=== PATIENT | male | born 1960 | race Caucasian/White ===

== ENCOUNTER 2019-10-13 08:25 | Inpatient (IN) | payer MEDICAID, OTHER ==
[~2019-10-13] VITALS: Ht 182.9 cm; Wt 106.6 kg
[2019-10-13] MEDS ORDERED: SODIUM CHLORIDE 0.9% 1,000 ML IV ONE (08:37)
[2019-10-13] MEDS ORDERED: SODIUM CHLORIDE 0.9% 1,000 ML IVB ONE (08:37)
[2019-10-13 09:23] LABS: Hematocrit 44.1 % (41.0-53.0); Hemoglobin 14.9 g/dL (13.5-17.5); Mean Corpuscular Hemoglobin 30.3 pg (28.0-32.0); Mean Corpuscular Hgb Conc. 33.7 g/dL (32.0-36.0); Mean Corpuscular Volume 89.9 fL (80.0-100.0); Platelet Count (auto) 308 10^3/uL (140-450); Red Cell Distribution Width 13.4 % (11.8-14.3); White Blood Cell 27.4 10^3/uL (4.4-10.8)
[2019-10-13 09:32] LABS: Basophils % (manual) 0 (0.0-2.0); Blast Cells 0; Eosinophils % (manual) 0 (0-7); Metamyelocytes % 0; Myelocytes % 0; Promyelocytes % 0; Reactive Lymphocytes 0
[2019-10-13 09:42] LABS: Anion Gap 14 (5-15); Blood Urea Nitrogen 65 mg/dL (7-18); Calcium 8.8 mg/dL (8.5-10.1); Carbon Dioxide 17 mmol/L (21-32); Chloride 95 mmol/L (98-107); Potassium 5.1 mmol/L (3.5-5.1); Sodium 126 mmol/L (136-145)
[2019-10-13 09:51] LABS: Alanine Aminotransferase 30 U/L (16-61); Alkaline Phosphatase 222 U/L (45-117); Aspartate Aminotransferase 36 U/L (15-37); BUN/Creatinine Ratio 33.2; Bilirubin, Total 1.3 mg/dL (0.2-1.0); Blood Alcohol < 3.0 mg/dL (0-5); GFR African American 45 mL/min; GFR Non-African American 37 mL/min; Total Protein 8.3 g/dL (6.4-8.2)
[2019-10-13 10:03] LABS: Albumin 1.8 g/dL (3.4-5.0)
[2019-10-13 10:04] LABS: Glucose 566 mg/dL (74-106)
[2019-10-13] MEDS ORDERED: SODIUM CHLORIDE 0.9% 1,000 ML IV SCH ×4 (10:10→16:21)
[2019-10-13] MEDS ORDERED: InsuLIN R (HUMAN) 100 UNITS in SODIUM CHL 0.9% 99 ML IV SCH ×2 (10:10→12:21)
[2019-10-13] MEDS ORDERED: PIPERACILLIN-TAZOB 3.375GM 100 ML IV ONE (10:15)
[2019-10-13] MEDS ORDERED: DEXTROSE (50%) 50ML SYRG IV PRN ×2 (10:15→12:30)
[2019-10-13] MEDS ORDERED: LORazepam 2MG/ML-1ML VIAL IV ONE (10:15)
[2019-10-13 10:30] LABS: Band Neutrophils % (manual) 13; Lymphocytes % (manual) 5 (10.0-50.0); Monocytes % (manual) 2 (0-12)
[2019-10-13] MEDS ORDERED: ACCU-CHEK COMFORT CURVE STRIP VI SCH (10:30)
[2019-10-13 10:55] LABS: Magnesium 2.1 mg/dL (1.6-2.6)
[2019-10-13] MEDS ORDERED: LORazepam 2MG/ML-1ML VIAL IM ONE (11:30)
[2019-10-13] MEDS ORDERED: ACETAMINOPHEN 650 MG RECT SUPP PR ONE (11:45)
[2019-10-13 11:58] LABS: Amylase 12 U/L (25-115); Lipase 60 U/L (73-393)
[2019-10-13 12:04] LABS: Urine WBC None Seen /hpf (0 - 3)
[2019-10-13 12:20] LABS: Phosphorus 0.7 mg/dL (2.5-4.90)
[2019-10-13 12:26] LABS: Urine Bacteria FEW /hpf (None Seen); Urine Blood 3+ /uL (Negative); Urine Specific Gravity 1.021 (1.001-1.035)
[2019-10-13] MEDS ORDERED: PROMETHAZINE HCL 25 MG/ML 1ML IV PRN (12:30)
[2019-10-13] MEDS ORDERED: cefTRIAXone 1GM/50ML D5W 50 ML IV ONE (12:30)
[2019-10-13] MEDS ORDERED: NITROGLYCERIN 0.4 MG SL TAB SL PRN (12:30)
[2019-10-13] MEDS ORDERED: INSULIN LANTUS (GLARGINE) 1 /0.01ml (100units/ml) SC ONE (12:30)
[2019-10-13] MEDS ORDERED: MORPHINE SULF INJ 2 MG/ML SYRINGE 1ML IV PRN (12:30)
[2019-10-13] MEDS ORDERED: traMADol HCL 50 MG TAB PO PRN (12:30)
[2019-10-13 12:32] LABS: Alcohol, Urine < 3.0 mg/dL (0-10); Amphetamine Screen, Urine POSITIVE (NEGATIVE); Barbiturate Scree,Urine NEGATIVE (NEGATIVE); Benzodiazephine Screen, Urine NEGATIVE (NEGATIVE); Cannabinoid Screen, Urine NEGATIVE (NEGATIVE); Cocaine Screen, Urine NEGATIVE (NEGATIVE); Opiate Scree,Urine NEGATIVE (NEGATIVE); Phencyclidine Screen, Urine NEGATIVE (NEGATIVE)
[2019-10-13 14:00] LABS: Anion Gap 17 (5-15); Carbon Dioxide 13 mmol/L (21-32); Chloride 98 mmol/L (98-107); Sodium 128 mmol/L (136-145)
[2019-10-13 14:01] LABS: BUN/Creatinine Ratio 32.5; Blood Urea Nitrogen 67 mg/dL (7-18); CRP High Sensitivity > 0.95 mg/dL (< 0.3); GFR African American 42 mL/min; GFR Non-African American 35 mL/min
[2019-10-13 14:04] LABS: Glucose 563 mg/dL (74-106); Potassium 5.9 mmol/L (3.5-5.1)
[2019-10-13] MEDS: ACCU-CHEK COMFORT CURVE STRIP VI SCH ×7 (14:10→22:46)
[2019-10-13] MEDS: SODIUM CHLORIDE 0.9% 1,000 ML IV SCH ×3 (14:17→20:56)
[2019-10-13] MEDS: metroNIDAZOLE 500MG/100ML 100 ML IV SCH ×2 (15:02→22:28)
[2019-10-13] MEDS ORDERED: CLINDAMYCIN 900MG IV 50 ML IV ONE (16:00)
[2019-10-13] MEDS: FAMOTIDINE (10MG/ML) 2ML VL IV SCH (17:36)
[2019-10-13 18:53] LABS: BUN/Creatinine Ratio 38.2; Calcium 7.9 mg/dL (8.5-10.1); Potassium 4.3 mmol/L (3.5-5.1)
[2019-10-13] MEDS: ACETAMINOPHEN 650 MG RECT SUPP PR PRN (19:18)
[2019-10-13] MEDS: CLINDAMYCIN 600MG IV 50 ML IV SCH (21:31)
[2019-10-13] MEDS: ATORVASTATIN 20 MG TAB PO SCH (22:00)
[2019-10-14] VITALS (39 sets, daily range): BP systolic 90–138; BP diastolic 62–93
[2019-10-14] MEDS: ACCU-CHEK COMFORT CURVE STRIP VI SCH ×10 (00:30→20:12)
[2019-10-14] MEDS: SODIUM CHLORIDE 0.9% 1,000 ML IV SCH ×5 (01:03→21:15)
[2019-10-14 01:30] LABS: Chloride 112 mmol/L (98-107); Potassium 4.4 mmol/L (3.5-5.1); Sodium 138 mmol/L (136-145)
[2019-10-14 01:36] LABS: Alanine Aminotransferase 25 U/L (16-61); Albumin 1.3 g/dL (3.4-5.0); Anion Gap 9 (5-15); Aspartate Aminotransferase 49 U/L (15-37); BUN/Creatinine Ratio 41.3; Blood Urea Nitrogen 59 mg/dL (7-18); Calcium 7.9 mg/dL (8.5-10.1); Carbon Dioxide 17 mmol/L (21-32); GFR African American 65 mL/min; GFR Non-African American 53 mL/min; Glucose 204 mg/dL (74-106)
[2019-10-14 01:38] LABS: Alkaline Phosphatase 152 U/L (45-117); Bilirubin, Total 0.9 mg/dL (0.2-1.0); Total Protein 6.8 g/dL (6.4-8.2)
[2019-10-14] MEDS ORDERED: ACETAMINOPHEN 650 MG RECT SUPP PR ONE ×3 (04:17→07:53)
[2019-10-14] MEDS ORDERED: metroNIDAZOLE 500MG/100ML 100 ML IV ONE (05:35)
[2019-10-14] MEDS ORDERED: CLINDAMYCIN 600MG IV 50 ML IV ONE (05:36)
[2019-10-14] MEDS: metroNIDAZOLE 500MG/100ML 100 ML IV SCH ×2 (06:00→14:28)
[2019-10-14 06:50] LABS: Basophils # (auto) 0 10 ^3/uL (0-0.2); Basophils % (auto) 0.1 % (0.0-2.0); Eosinophils # (auto) 0 10 ^3/uL (0-0.8); Hemoglobin 12.8 g/dL (13.5-17.5); Lymphocytes # (auto) 0.6 10 ^3/uL (0.4-5.4); Lymphocytes % (auto) 3.5 % (10.0-50.0); Mean Corpuscular Hemoglobin 29.9 pg (28.0-32.0); Mean Corpuscular Hgb Conc. 33.6 g/dL (32.0-36.0); Mean Corpuscular Volume 88.8 fL (80.0-100.0); Monocytes # (auto) 0.9 10 ^3/uL (0-1.3); Monocytes % (auto) 5.3 % (0.0-12.0); Neutrophils # (auto) 15.6 10 ^3/uL (1.6-8.6); Neutrophils % (auto) 91.1 % (37.0-80.0); Platelet Count (auto) 208 10^3/uL (140-450); Red Blood Cells 4.28 10^6/uL (4.5-5.90); Red Cell Distribution Width 13.7 % (11.8-14.3); White Blood Cell 17.1 10^3/uL (4.4-10.8)
[2019-10-14 07:06] LABS: INR 1.17 (0.9-1.15)
[2019-10-14 07:07] LABS: Calcium 7.9 mg/dL (8.5-10.1); Potassium 4.1 mmol/L (3.5-5.1)
[2019-10-14 07:15] LABS: Albumin 1.3 g/dL (3.4-5.0); BUN/Creatinine Ratio 45.2; Bilirubin, Total 0.9 mg/dL (0.2-1.0); Total Protein 6.6 g/dL (6.4-8.2)
[2019-10-14] MEDS: CLINDAMYCIN 600MG IV 50 ML IV SCH (07:25)
[2019-10-14] MEDS ORDERED: hydrALAZINE HCL 20 MG/ML VL IV PRN (08:00)
[2019-10-14 08:15] LABS: Cholesterol 82 mg/dL (< 200); Triglycerides 105 mg/dL (< 150)
[2019-10-14 08:18] LABS: HDL Cholesterol 7 mg/dL (40-59); LDL Cholesterol 33 mg/dL (< 100)
[2019-10-14] MEDS: ACETAMINOPHEN 650 MG RECT SUPP PR PRN (08:40)
[2019-10-14] MEDS ORDERED: cefTRIAXone 1GM/50ML D5W 50 ML IV SCH (09:00)
[2019-10-14] MEDS ORDERED: SULF400T11 PO (09:32)
[2019-10-14] MEDS ORDERED: ASPI-498 PO (09:32)
[2019-10-14] MEDS ORDERED: LISI10TA6 PO (09:32)
[2019-10-14] MEDS ORDERED: ALLO300T2 PO (09:32)
[2019-10-14] MEDS ORDERED: LISI-711 PO (09:32)
[2019-10-14] MEDS ORDERED: HYDR-4798 PO (09:36)
[2019-10-14] MEDS ORDERED: GABA800T97 PO (09:36)
[2019-10-14] MEDS ORDERED: INSLISPI SC (09:36)
[2019-10-14] MEDS ORDERED: INSU1INJ19 SC (09:36)
[2019-10-14] MEDS ORDERED: FAMOTIDINE (10MG/ML) 2ML VL IV ONE (09:51)
[2019-10-14] MEDS ORDERED: INSULIN LANTUS (GLARGINE) 1 /0.01ml (100units/ml) SC ONE (09:51)
[2019-10-14] MEDS ORDERED: cefTRIAXone 1GM/50ML D5W 50 ML IV ONE (09:51)
[2019-10-14] MEDS: INSULIN LANTUS (GLARGINE) 1 /0.01ml (100units/ml) SC SCH (10:00)
[2019-10-14] MEDS ORDERED: ASPirin 81 mg TAB PO SCH (10:00)
[2019-10-14] MEDS ORDERED: DEXTROSE (50%) 50ML SYRG IV PRN (10:00)
[2019-10-14] MEDS ORDERED: LISINOPRIL 10 MG TAB PO SCH (10:00)
[2019-10-14] MEDS: FAMOTIDINE (10MG/ML) 2ML VL IV SCH (10:08)
[2019-10-14] MEDS: METOPROLOL TARTRATE 25 MG TAB PO SCH ×2 (10:19→22:20)
[2019-10-14] MEDS: ASPirin 81 mg TAB PO SCH (10:19)
[2019-10-14] MEDS: LINEZOLID 600MG/300ML 300 ML IV SCH ×2 (10:43→22:13)
[2019-10-14] MEDS: InsuLIN REG 1unit/0.01ml Soln (100units/ml) SC SCH ×3 (11:49→20:14)
[2019-10-14] MEDS ORDERED: CLINDAMYCIN 600MG IV 50 ML IV SCH (16:00)
[2019-10-14 16:25] LABS: BUN/Creatinine Ratio 47.8; Calcium 7.7 mg/dL (8.5-10.1)
[2019-10-14] MEDS: ACETAMINOPHEN 500 MG TAB PO PRN (18:13)
[2019-10-14] MEDS ORDERED: ACETAMINOPHEN 650 MG RECT SUPP PR PRN (21:30)
[2019-10-14] MEDS: PIPERACILLIN-TAZOB 3.375GM 100 ML IV SCH (22:12)
[2019-10-14] MEDS: MUPIROCIN 2% OINT 15gm or 22gm EACHNOSTRI SCH (22:15)
[2019-10-14] MEDS: ATORVASTATIN 20 MG TAB PO SCH (22:16)
[2019-10-15] VITALS (46 sets, daily range): BP systolic 96–144; BP diastolic 61–87
[2019-10-15] MEDS: ACCU-CHEK COMFORT CURVE STRIP VI SCH ×6 (00:12→20:20)
[2019-10-15] MEDS: InsuLIN REG 1unit/0.01ml Soln (100units/ml) SC SCH ×6 (00:15→20:17)
[2019-10-15] MEDS: PIPERACILLIN-TAZOB 3.375GM 100 ML IV SCH (05:41)
[2019-10-15 05:43] LABS: Basophils # (auto) 0 10 ^3/uL (0-0.2); Basophils % (auto) 0.2 % (0.0-2.0); Eosinophils # (auto) 0 10 ^3/uL (0-0.8); Eosinophils % (auto) 0.2 % (0.0-7.0); Hematocrit 37.5 % (41.0-53.0); Hemoglobin 12.6 g/dL (13.5-17.5); Lymphocytes # (auto) 0.7 10 ^3/uL (0.4-5.4); Lymphocytes % (auto) 4.7 % (10.0-50.0); Mean Corpuscular Hemoglobin 30.2 pg (28.0-32.0); Mean Corpuscular Hgb Conc. 33.6 g/dL (32.0-36.0); Monocytes # (auto) 0.7 10 ^3/uL (0-1.3); Monocytes % (auto) 4.6 % (0.0-12.0); Neutrophils % (auto) 90.3 % (37.0-80.0); Platelet Count (auto) 190 10^3/uL (140-450); Red Blood Cells 4.17 10^6/uL (4.5-5.90); Red Cell Distribution Width 14.1 % (11.8-14.3); White Blood Cell 15.5 10^3/uL (4.4-10.8)
[2019-10-15 05:57] LABS: Albumin 1.2 g/dL (3.4-5.0); Calcium 7.6 mg/dL (8.5-10.1); Potassium 3.7 mmol/L (3.5-5.1)
[2019-10-15 06:02] LABS: BUN/Creatinine Ratio 45.2; Bilirubin, Total 0.4 mg/dL (0.2-1.0); Total Protein 6.3 g/dL (6.4-8.2)
[2019-10-15] MEDS: FAMOTIDINE (10MG/ML) 2ML VL IV SCH (09:24)
[2019-10-15] MEDS: ASPirin 81 mg TAB PO SCH (09:24)
[2019-10-15] MEDS: LINEZOLID 600MG/300ML 300 ML IV SCH (09:24)
[2019-10-15] MEDS: MUPIROCIN 2% OINT 15gm or 22gm EACHNOSTRI SCH ×2 (09:24→21:49)
[2019-10-15] MEDS: METOPROLOL TARTRATE 25 MG TAB PO SCH ×2 (09:25→21:50)
[2019-10-15] MEDS: ENOXAPARIN SOD 40 MG/0.4 ML SYRINGE SC SCH (09:25)
[2019-10-15] MEDS: SODIUM CHLORIDE 0.9% 1,000 ML IV SCH (10:35)
[2019-10-15] MEDS ORDERED: VANCOMYCIN PER PHARMACY 0 MG IV SCH (11:15)
[2019-10-15] MEDS ORDERED: VANCOMYCIN 1GM/250ML 250 ML IV ONE (11:30)
[2019-10-15] MEDS: INSULIN LANTUS (GLARGINE) 1 /0.01ml (100units/ml) SC SCH (12:25)
[2019-10-15] MEDS: levoFLOXacin 500MG 100 ML IV SCH (13:55)
[2019-10-15] MEDS: metroNIDAZOLE 500MG/100ML 100 ML IV SCH ×2 (15:30→21:49)
[2019-10-15] MEDS ORDERED: LIDOCAINE 1% (LOCAL ANESTH.) PF 5ml SDV ID ONE (18:00)
[2019-10-15] MEDS: ATORVASTATIN 20 MG TAB PO SCH (21:50)
[2019-10-15] MEDS: ACETAMINOPHEN 500 MG TAB PO PRN (21:50)
[2019-10-15] MEDS: SODIUM CHLOR 0.9% PF (SALINE LOCK) 10ML VIAL/SYR IV SCH (21:56)
[2019-10-15 22:49] LABS: Protein, Urine 68.1 mg/dL (0.0-11.9)
[2019-10-16] VITALS (35 sets, daily range): BP systolic 103–137; BP diastolic 62–98
[2019-10-16] MEDS: InsuLIN REG 1unit/0.01ml Soln (100units/ml) SC SCH ×6 (00:15→20:02)
[2019-10-16] MEDS: ACCU-CHEK COMFORT CURVE STRIP VI SCH ×6 (00:17→20:08)
[2019-10-16] MEDS: VANCOMYCIN 1GM/250ML 250 ML IV SCH ×2 (01:09→13:15)
[2019-10-16 04:32] LABS: Basophils # (auto) 0.1 10 ^3/uL (0-0.2); Basophils % (auto) 0.4 % (0.0-2.0); Eosinophils # (auto) 0.1 10 ^3/uL (0-0.8); Eosinophils % (auto) 0.4 % (0.0-7.0); Hemoglobin 11.6 g/dL (13.5-17.5); Lymphocytes % (auto) 6.6 % (10.0-50.0); Mean Corpuscular Hemoglobin 30.2 pg (28.0-32.0); Mean Corpuscular Hgb Conc. 34.2 g/dL (32.0-36.0); Mean Corpuscular Volume 88.5 fL (80.0-100.0); Monocytes # (auto) 0.4 10 ^3/uL (0-1.3); Monocytes % (auto) 2.8 % (0.0-12.0); Neutrophils # (auto) 13.6 10 ^3/uL (1.6-8.6); Neutrophils % (auto) 89.8 % (37.0-80.0); Platelet Count (auto) 144 10^3/uL (140-450); Red Blood Cells 3.84 10^6/uL (4.5-5.90); Red Cell Distribution Width 13.7 % (11.8-14.3); White Blood Cell 15.2 10^3/uL (4.4-10.8)
[2019-10-16 04:43] LABS: Potassium 3.6 mmol/L (3.5-5.1)
[2019-10-16 04:49] LABS: Albumin 1.1 g/dL (3.4-5.0); Bilirubin, Total 0.4 mg/dL (0.2-1.0); Calcium 6.8 mg/dL (8.5-10.1); Phosphorus 2.4 mg/dL (2.5-4.90); Total Protein 5.8 g/dL (6.4-8.2); Uric Acid 7.7 mg/dL (3.5-7.2)
[2019-10-16] MEDS: metroNIDAZOLE 500MG/100ML 100 ML IV SCH ×3 (06:23→21:34)
[2019-10-16] MEDS: levoFLOXacin 500MG 100 ML IV SCH (10:21)
[2019-10-16] MEDS: FAMOTIDINE (10MG/ML) 2ML VL IV SCH (10:21)
[2019-10-16] MEDS: SODIUM CHLOR 0.9% PF (SALINE LOCK) 10ML VIAL/SYR IV SCH ×2 (10:21→21:34)
[2019-10-16] MEDS: INSULIN LANTUS (GLARGINE) 1 /0.01ml (100units/ml) SC SCH (10:33)
[2019-10-16] MEDS: ENOXAPARIN SOD 40 MG/0.4 ML SYRINGE SC SCH (10:39)
[2019-10-16] MEDS: ASPirin 81 mg TAB PO SCH (10:39)
[2019-10-16] MEDS: METOPROLOL TARTRATE 25 MG TAB PO SCH ×2 (10:39→21:34)
[2019-10-16] MEDS: MUPIROCIN 2% OINT 15gm or 22gm EACHNOSTRI SCH ×2 (10:39→21:33)
[2019-10-16] MEDS ORDERED: POTASSIUM CHL 20 Meq TABLET PO ONE (11:30)
[2019-10-16] MEDS ORDERED: POTASSIUM CHLORIDE 20 MEQ in SODIUM CHLORIDE 0.9% 1,000 ML IV SCH (11:30)
[2019-10-16] MEDS ORDERED: SOD CHL 0.9%/ KCL 20MEQ 1,000 ML IV ONE (13:11)
[2019-10-16] MEDS: SOD CHL 0.9%/ KCL 20MEQ 1,000 ML IV SCH (13:26)
[2019-10-16] MEDS: ACETAMINOPHEN 500 MG TAB PO PRN (18:13)
[2019-10-16] MEDS ORDERED: HYDROcodone-ACET 5/325MG TAB PO PRN (20:15)
[2019-10-16] MEDS: ATORVASTATIN 20 MG TAB PO SCH (21:35)
[2019-10-17] MEDS: InsuLIN REG 1unit/0.01ml Soln (100units/ml) SC SCH ×7 (00:24→23:52)
[2019-10-17] MEDS: ACCU-CHEK COMFORT CURVE STRIP VI SCH ×7 (00:26→23:50)
[2019-10-17] MEDS: VANCOMYCIN 1GM/250ML 250 ML IV SCH ×2 (00:27→14:51)
[2019-10-17] MEDS: SOD CHL 0.9%/ KCL 20MEQ 1,000 ML IV SCH ×2 (03:44→18:05)
[2019-10-17 05:00] VITALS: BP 157/93
[2019-10-17] MEDS: metroNIDAZOLE 500MG/100ML 100 ML IV SCH ×3 (05:40→22:00)
[2019-10-17] MEDS: ACETAMINOPHEN 500 MG TAB PO PRN (06:16)
[2019-10-17 06:29] LABS: Basophils # (auto) 0 10 ^3/uL (0-0.2); Basophils % (auto) 0.1 % (0.0-2.0); Eosinophils # (auto) 0 10 ^3/uL (0-0.8); Hematocrit 38.9 % (41.0-53.0); Lymphocytes # (auto) 0.5 10 ^3/uL (0.4-5.4); Lymphocytes % (auto) 3.2 % (10.0-50.0); Mean Corpuscular Hgb Conc. 33.3 g/dL (32.0-36.0); Monocytes # (auto) 0.3 10 ^3/uL (0-1.3); Monocytes % (auto) 1.8 % (0.0-12.0); Neutrophils # (auto) 15.1 10 ^3/uL (1.6-8.6); Neutrophils % (auto) 94.9 % (37.0-80.0); Platelet Count (auto) 184 10^3/uL (140-450); Red Blood Cells 4.32 10^6/uL (4.5-5.90); Red Cell Distribution Width 13.9 % (11.8-14.3); White Blood Cell 15.9 10^3/uL (4.4-10.8)
[2019-10-17 06:32] LABS: Potassium 4.3 mmol/L (3.5-5.1)
[2019-10-17 06:42] LABS: BUN/Creatinine Ratio 42.4; Calcium 7.4 mg/dL (8.5-10.1)
[2019-10-17 09:00] VITALS: BP 115/66
[2019-10-17] MEDS: INSULIN LANTUS (GLARGINE) 1 /0.01ml (100units/ml) SC SCH (10:00)
[2019-10-17] MEDS: ASPirin 81 mg TAB PO SCH (11:29)
[2019-10-17] MEDS: METOPROLOL TARTRATE 25 MG TAB PO SCH ×2 (11:32→22:16)
[2019-10-17] MEDS: levoFLOXacin 500MG 100 ML IV SCH (11:34)
[2019-10-17] MEDS: SODIUM CHLOR 0.9% PF (SALINE LOCK) 10ML VIAL/SYR IV SCH ×2 (11:47→22:00)
[2019-10-17] MEDS: MUPIROCIN 2% OINT 15gm or 22gm EACHNOSTRI SCH ×2 (12:11→22:00)
[2019-10-17] MEDS: FAMOTIDINE (10MG/ML) 2ML VL IV SCH (12:12)
[2019-10-17] MEDS: SODIUM BICARBONATE 650 MG TAB PO SCH ×2 (12:12→22:15)
[2019-10-17] MEDS: ENOXAPARIN SOD 40 MG/0.4 ML SYRINGE SC SCH (12:32)
[2019-10-17 13:00] VITALS: BP 110/63
[2019-10-17 17:00] VITALS: BP 124/72
[2019-10-17 22:00] VITALS: BP 170/82
[2019-10-17] MEDS: ATORVASTATIN 20 MG TAB PO SCH (22:15)
[2019-10-18] MEDS: VANCOMYCIN 1GM/250ML 250 ML IV SCH ×2 (01:28→14:00)
[2019-10-18] MEDS: ACCU-CHEK COMFORT CURVE STRIP VI SCH ×3 (04:12→13:59)
[2019-10-18] MEDS: InsuLIN REG 1unit/0.01ml Soln (100units/ml) SC SCH ×3 (04:17→13:59)
[2019-10-18 05:00] VITALS: BP 150/104
[2019-10-18] MEDS: metroNIDAZOLE 500MG/100ML 100 ML IV SCH ×2 (06:00→14:00)
[2019-10-18] MEDS: SOD CHL 0.9%/ KCL 20MEQ 1,000 ML IV SCH (08:09)
[2019-10-18 09:00] VITALS: BP 122/73
[2019-10-18] MEDS: MUPIROCIN 2% OINT 15gm or 22gm EACHNOSTRI SCH (10:00)
[2019-10-18] MEDS: INSULIN LANTUS (GLARGINE) 1 /0.01ml (100units/ml) SC SCH (10:00)
[2019-10-18] MEDS: SODIUM CHLOR 0.9% PF (SALINE LOCK) 10ML VIAL/SYR IV SCH (10:13)
[2019-10-18] MEDS: METOPROLOL TARTRATE 25 MG TAB PO SCH (10:38)
[2019-10-18] MEDS: FAMOTIDINE (10MG/ML) 2ML VL IV SCH (10:38)
[2019-10-18] MEDS: ASPirin 81 mg TAB PO SCH (10:38)
[2019-10-18] MEDS: SODIUM BICARBONATE 650 MG TAB PO SCH (10:38)
[2019-10-18] MEDS: levoFLOXacin 500MG 100 ML IV SCH (10:38)
[2019-10-18] MEDS: ENOXAPARIN SOD 40 MG/0.4 ML SYRINGE SC SCH (10:39)
[2019-10-18 12:43] VITALS: BP 117/81
== END 2019-10-18 14:58 | DRG 720 ==
LOC: EDBD 08:25 → ER 08:25 → ICU WEST 08:26 → OVERFLOW 08:26 → UNDOADMIN 08:26 → OVERFLOW 23:53 → ICU WEST 23:53 → TELE-CENTR 10-16 17:30
PROVIDERS: ADMIT Nurse Practitioner; ATTEND Internal Medicine
PROC: 02HV33Z Insertion of Infusion Device into Superior Vena Cava, Percutaneous Approach (ICD-10-PCS; principal; 2019-10-13)
DX: A41.02 Sepsis due to Methicillin resistant Staphylococcus aureus (principal); I21.A1 Myocardial infarction type 2; N17.0 Acute kidney failure with tubular necrosis; J69.0 Pneumonitis due to inhalation of food and vomit; E11.10 Type 2 diabetes mellitus with ketoacidosis without coma; G92 Toxic encephalopathy; K76.6 Portal hypertension; E87.1 Hypo-osmolality and hyponatremia; E86.0 Dehydration; E87.5 Hyperkalemia; E87.6 Hypokalemia; K74.60 Unspecified cirrhosis of liver; S00.83XA Contusion of other part of head, initial encounter; X58.XXXA Exposure to other specified factors, initial encounter; Z03.818 Encounter for observation for suspected exposure to other biological agents ruled out; N30.90 Cystitis, unspecified without hematuria; E78.5 Hyperlipidemia, unspecified; I10 Essential (primary) hypertension; Z79.899 Other long term (current) drug therapy; Z79.82 Long term (current) use of aspirin; Y93.89 Activity, other specified; Y92.89 Other specified places as the place of occurrence of the external cause; Y99.8 Other external cause status; Z79.4 Long term (current) use of insulin; Z22.322 Carrier or suspected carrier of Methicillin resistant Staphylococcus aureus; Z87.820 Personal history of traumatic brain injury; Z91.19 Patient's noncompliance with other medical treatment and regimen
CPT/HCPCS: 36415; 36569; 36600; 51702; 70450; 71045; 74176; 76775; 80048; 80053; 80061; 80202; 80307; 80320; 81001; 82010; 82140; 82150; 82550; 82570; 82805; 82962; 83036; 83605; 83690; 83735; 83930; 84100; 84156; 84300; 84484; 84550; 85007; 85025; 85027; 85610; 85652; 85730; 86141; 87040; 87077; 87081; 87086; 87088; 87147; 87186; 87493; 93005; 93306; 96374; 97110; 97163; 97530; 99291; G0378; J0696; J1815; J1956; J2543; J3490